=== PATIENT | female | born 1980 | race Caucasian/White ===

== ENCOUNTER 2017-05-27 16:46 | Emergency (ER) | payer OTHER ==
[~2017-05-27] VITALS: Ht 167.6 cm; Wt 49.9 kg
[~2017-05-27 16:46] MED LIST: AMOXICILLIN 50500 MG; BACTRIM DS TAB1 EACH PO; BENADRYL25 MG PO; DUEXIS 800-26.1 EACH; FLEXERIL PO; HYDROCODONE-AP1 EAC6 PO; IBUPROFEN 800800 M1 PO; MACROBID 100 M100 M2 PO; MUCINEX TA600 MG/TA2 PO; NORCO 5-325 TA1 EACH PO; PREDNISONE 10 M10 MG PO; PREDNISONE 20 M20 MG PO; PRILOSEC 20 MG20 MG PO; PROVERA10 MG PO; SUDAFED 12-HOU120 MG PO; TESSALON PERLE100 MG PO; TRAMADOL 50 MG50 MG PO; VENTOLIN HFA 1818 GM INH; ZOFRAN ODT4 MG PO
[2017-05-27] MEDS ORDERED: IBUPROFEN 800800 M1 PO (17:00)
[2017-05-27] MEDS ORDERED: TORADOL 10 MG T10 MG PO (17:22)
[2017-05-27 18:12] VITALS: BP 131/72
== END 2017-05-27 18:12 | disposition home or self-care (01) ==
LOC: M.ERS 16:46
DX: M62.838 Other muscle spasm (principal); F17.210 Nicotine dependence, cigarettes, uncomplicated; Z90.710 Acquired absence of both cervix and uterus; Z98.890 Other specified postprocedural states; Z88.8 Allergy status to other drugs, medicaments and biological substances

== ENCOUNTER 2017-06-27 19:17 | Emergency (ER) | payer OTHER ==
[~2017-06-27] VITALS: Ht 167.6 cm; Wt 51.3 kg
[~2017-06-27 19:17] MED LIST changes: +TORADOL 10 MG T10 MG PO
[2017-06-27] MEDS ORDERED: MEDROLDOSEPACK PO (20:04)
[2017-06-27] MEDS ORDERED: KEFLEX500 M1 PO (20:04)
[2017-06-27] MEDS ORDERED: HYDROCODONE-AP1 EAC6 PO (20:04)
[2017-06-27 20:23] VITALS: BP 119/59
== END 2017-06-27 20:25 | disposition home or self-care (01) ==
LOC: M.ERS 19:17
DX: R68.84 Jaw pain (principal); F17.210 Nicotine dependence, cigarettes, uncomplicated; Z90.89 Acquired absence of other organs; Z86.2 Personal history of diseases of the blood and blood-forming organs and certain disorders involving the immune mechanism; Z90.710 Acquired absence of both cervix and uterus; Z88.6 Allergy status to analgesic agent

== ENCOUNTER 2017-10-16 18:55 | Emergency (ER) | payer OTHER ==
[~2017-10-16] VITALS: Ht 167.6 cm; Wt 49.9 kg
[~2017-10-16 18:55] MED LIST changes: +KEFLEX500 M1 PO; +MEDROLDOSEPACK PO
[2017-10-16 19:00] VITALS: BP 115/63
[2017-10-16] MEDS ORDERED: IMITREX100 MG (19:04)
[2017-10-16] MEDS ORDERED: HYDROCODONE-AP1 EAC6 PO (19:26)
== END 2017-10-16 19:42 | disposition home or self-care (01) ==
LOC: M.ERS 18:55
DX: M26.621 Arthralgia of right temporomandibular joint (principal); F17.210 Nicotine dependence, cigarettes, uncomplicated; Z90.89 Acquired absence of other organs; Z86.2 Personal history of diseases of the blood and blood-forming organs and certain disorders involving the immune mechanism; Z90.710 Acquired absence of both cervix and uterus; Z88.6 Allergy status to analgesic agent

== ENCOUNTER 2018-06-24 17:10 | Emergency (ER) | payer OTHER ==
[~2018-06-24] VITALS: Ht 167.6 cm; Wt 54.4 kg
[~2018-06-24 17:10] MED LIST changes: +IMITREX100 MG
[2018-06-24] MEDS ORDERED: NEURONTIN 300300 M1 PO (17:31)
[2018-06-24] MEDS ORDERED: LEXAPRO20 MG (17:31)
[2018-06-24] MEDS ORDERED: AZO1 EACH (17:32)
[2018-06-24] MEDS ORDERED: IMITREX 25 MG T25 M1 (17:33)
[2018-06-24] MEDS ORDERED: PROTONIX 20 MG20 M1 PO (17:33)
[2018-06-24 18:47] VITALS: BP 109/79
== END 2018-06-24 18:47 | disposition home or self-care (01) ==
LOC: M.ERS 17:10
DX: M25.511 Pain in right shoulder (principal); M54.9 Dorsalgia, unspecified; F17.210 Nicotine dependence, cigarettes, uncomplicated; Z88.6 Allergy status to analgesic agent; Z86.2 Personal history of diseases of the blood and blood-forming organs and certain disorders involving the immune mechanism; Z90.710 Acquired absence of both cervix and uterus; Z98.890 Other specified postprocedural states

== ENCOUNTER 2018-08-12 13:57 | Emergency (ER) | payer OTHER ==
[~2018-08-12] VITALS: Ht 167.6 cm; Wt 61.2 kg
[~2018-08-12 13:57] MED LIST changes: +AZO1 EACH; +IMITREX 25 MG T25 M1; +LEXAPRO20 MG; +NEURONTIN 300300 M1 PO; +PROTONIX 20 MG20 M1 PO
[2018-08-12] MEDS ORDERED: BUSPIRONE HCL10 MG PO (14:18)
[2018-08-12 14:21] LABS: URINE BILIRUBIN NEGATIVE (Negative); URINE BLOOD 2+ (Negative); URINE CLARITY SL CLOUDY; URINE COLOR YELLOW; URINE GLUCOSE-RANDOM NEGATIVE (Negative); URINE KETONES NEGATIVE (Negative); URINE NITRITE-REFLEX NEGATIVE (Negative); URINE PROTEIN 1+ (Negative); URINE SPECIFIC GRAVITY 1.025 (1.005-1.030); URINE UROBILINOGEN 0.2 E.U./dl (0.2-1.0)
[2018-08-12 14:23] LABS: URINE LEUKOCYTES-REFLEX 3+ (Negative)
[2018-08-12 14:33] LABS: BACTERIA-REFLEX >30 Many /HPF (None Seen); SQUAMOUS >10 Many /LPF (0-3); URINE RBC 3-10 Few /HPF (0-2); URINE WBC-REFLEX >25 Many /HPF (0-5)
[2018-08-12 14:34] LABS: CASTS None Seen /LPF (None Seen); CRYSTALS None Seen /LPF (None Seen); MUCUS None Seen strn/LPF (None Seen)
[2018-08-12] MEDS ORDERED: BACTRIM DS TAB1 EACH PO (14:44)
[2018-08-12] MEDS ORDERED: PHENAZOPYRIDIN200 M2 PO (14:44)
[2018-08-12 15:01] VITALS: BP 120/70
== END 2018-08-12 15:01 | disposition home or self-care (01) ==
LOC: M.ERS 13:57
PROVIDERS: Physician Assistant
DX: N39.0 Urinary tract infection, site not specified (principal); F17.210 Nicotine dependence, cigarettes, uncomplicated; Z90.710 Acquired absence of both cervix and uterus; Z98.890 Other specified postprocedural states; Z86.2 Personal history of diseases of the blood and blood-forming organs and certain disorders involving the immune mechanism; Z88.6 Allergy status to analgesic agent

== ENCOUNTER 2018-08-23 21:51 | Emergency (ER) | payer OTHER ==
[~2018-08-23] VITALS: Ht 167.6 cm; Wt 61.2 kg
[~2018-08-23 21:51] MED LIST changes: +BUSPIRONE HCL10 MG PO; +PHENAZOPYRIDIN200 M2 PO
[2018-08-23] MEDS ORDERED: BUSPIRONE HCL10 MG PO (22:03)
[2018-08-23] MEDS ORDERED: NORCO 5-325 TA1 EACH PO (22:21)
[2018-08-23 22:38] VITALS: BP 112/76
== END 2018-08-23 22:38 | disposition home or self-care (01) ==
LOC: M.ERS 21:51
DX: S93.401A Sprain of unspecified ligament of right ankle, initial encounter (principal); Z90.710 Acquired absence of both cervix and uterus; F17.210 Nicotine dependence, cigarettes, uncomplicated; Z88.6 Allergy status to analgesic agent; W10.9XXA Fall (on) (from) unspecified stairs and steps, initial encounter; Y93.89 Activity, other specified; Y92.89 Other specified places as the place of occurrence of the external cause; Y99.8 Other external cause status

== ENCOUNTER 2018-09-16 20:50 | Emergency (ER) | payer OTHER ==
[~2018-09-16] VITALS: Ht 167.6 cm; Wt 62.6 kg
[~2018-09-16 20:50] MED LIST changes: +NORCO 5-325 TA1 EAC1 PO; +PROMETHAZINE HC25 M1 PO
[2018-09-16] MEDS ORDERED: MOBIC7.5 MG PO (21:00)
[2018-09-16 21:13] LABS: URINE BILIRUBIN NEGATIVE (Negative); URINE BLOOD NEGATIVE (Negative); URINE CLARITY CLEAR; URINE COLOR YELLOW; URINE GLUCOSE-RANDOM NEGATIVE (Negative); URINE KETONES TRACE (Negative); URINE LEUKOCYTES-REFLEX NEGATIVE (Negative); URINE NITRITE-REFLEX NEGATIVE (Negative); URINE PROTEIN 1+ (Negative); URINE SPECIFIC GRAVITY >= 1.030 (1.005-1.030); URINE UROBILINOGEN 0.2 E.U./dl (0.2-1.0)
[2018-09-16 21:27] LABS: ABSOLUTE BASOPHILS 0.1 thou/uL (0.0-0.2); ABSOLUTE EOSINOPHILS 0.4 thou/uL (0.0-0.7); ABSOLUTE LYMPHOCYTES 2.8 thou/uL (0.8-5.3); ABSOLUTE MONOCYTES 0.9 thou/uL (0.0-1.2); ABSOLUTE NEUTROPHILS 4.9 thou/uL (1.6-8.1); BASOPHILS 0.8 %; EOSINOPHILS 4.5 %; HEMATOCRIT 36.2 % (37.0-47.0); HEMOGLOBIN 12.2 gm/dL (12.0-15.0); LYMPHOCYTES 30.8 %; MCH 30.2 pg (26.0-34.0); MCHC 33.7 g/dL (28.0-37.0); MCV 89.4 fL (80.0-100.0); MONOCYTES 9.9 %; MPV 8.9 fl. (7.2-11.1); NUCLEATED RBCS 0 /100WBC; PLATELET COUNT* 189 thou/uL (150-400); RBC 4.05 mil/uL (4.20-5.00); RDW-CV 14.8 % (10.5-14.5); WBC 9.1 thou/uL (4.0-11.0)
[2018-09-16 21:43] LABS: ALBUMIN 3.6 g/dL (3.4-5.0); CALCIUM 8.8 mg/dL (8.5-10.1); CREATININE 0.8 mg/dL (0.6-1.3); POTASSIUM 4.8 mmol/L (3.5-5.1); TOTAL BILIRUBIN 0.1 mg/dL (<0.1-1.0); TOTAL PROTEIN 6.5 g/dL (6.4-8.2)
[2018-09-16] MEDS ORDERED: NORCO 5-325 TA1 EACH PO (22:37)
[2018-09-16 23:01] VITALS: BP 138/77
== END 2018-09-16 23:02 | disposition home or self-care (01) ==
LOC: M.ERS 20:50
PROVIDERS: Physician Assistant
DX: N83.202 Unspecified ovarian cyst, left side (principal); F17.210 Nicotine dependence, cigarettes, uncomplicated; Z88.6 Allergy status to analgesic agent; Z90.710 Acquired absence of both cervix and uterus; Z86.2 Personal history of diseases of the blood and blood-forming organs and certain disorders involving the immune mechanism

== ENCOUNTER 2019-01-28 19:55 | Emergency (ER) | payer OTHER ==
[~2019-01-28] VITALS: Ht 167.6 cm; Wt 63.5 kg
[~2019-01-28 19:55] MED LIST changes: +MOBIC7.5 MG PO
[2019-01-28] MEDS ORDERED: AMOXICILLIN 50500 MG (20:04)
[2019-01-28 20:34] LABS: ABSOLUTE BASOPHILS 0.1 thou/uL (0.0-0.2); ABSOLUTE EOSINOPHILS 0.2 thou/uL (0.0-0.7); ABSOLUTE LYMPHOCYTES 2.8 thou/uL (0.8-5.3); ABSOLUTE MONOCYTES 0.7 thou/uL (0.0-1.2); ABSOLUTE NEUTROPHILS 6.3 thou/uL (1.6-8.1); BASOPHILS 1.2 %; EOSINOPHILS 2.2 %; HEMATOCRIT 39.3 % (37.0-47.0); HEMOGLOBIN 13.4 gm/dL (12.0-15.0); LYMPHOCYTES 27.9 %; MCH 30.4 pg (26.0-34.0); MCHC 34.2 g/dL (28.0-37.0); MONOCYTES 7.3 %; MPV 8.6 fl. (7.2-11.1); NUCLEATED RBCS 0 /100WBC; PLATELET COUNT* 267 thou/uL (150-400); POLYS 61.4 %; RBC 4.41 mil/uL (4.20-5.00); RDW-CV 13.8 % (10.5-14.5); WBC 10.2 thou/uL (4.0-11.0)
[2019-01-28 20:41] LABS: CALCIUM 8.8 mg/dL (8.5-10.1); CREATININE 0.9 mg/dL (0.6-1.3); POTASSIUM 3.1 mmol/L (3.5-5.1)
[2019-01-28 20:46] LABS: ALBUMIN 3.6 g/dL (3.4-5.0); TOTAL BILIRUBIN 0.2 mg/dL (<0.1-1.0); TOTAL PROTEIN 7.3 g/dL (6.4-8.2)
[2019-01-28] MEDS ORDERED: TESSALON PERLE100 MG PO (21:11)
[2019-01-28] MEDS ORDERED: ACETAMINOPHEN-1 EAC1 PO (21:11)
[2019-01-28] MEDS ORDERED: PROMETHAZINE V120 ML PO (21:11)
[2019-01-28] MEDS ORDERED: PROAIR HFA8.5 GM INH (21:11)
[2019-01-28 21:31] VITALS: BP 125/79
--- NOTE | 2019-01-29 15:01 | EKG ---
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
== END 2019-01-28 21:35 | disposition home or self-care (01) ==
LOC: M.ERS 19:55
PROVIDERS: Physician Assistant
DX: J20.9 Acute bronchitis, unspecified (principal); E87.6 Hypokalemia; F17.210 Nicotine dependence, cigarettes, uncomplicated; Z90.89 Acquired absence of other organs; Z86.2 Personal history of diseases of the blood and blood-forming organs and certain disorders involving the immune mechanism; Z90.710 Acquired absence of both cervix and uterus; Z88.6 Allergy status to analgesic agent

== ENCOUNTER 2019-02-10 11:18 | Emergency (ER) | payer OTHER ==
[~2019-02-10] VITALS: Ht 167.6 cm; Wt 63.5 kg
[~2019-02-10 11:18] MED LIST changes: +ACETAMINOPHEN-1 EAC1 PO; +PROAIR HFA8.5 GM INH; +PROMETHAZINE V120 ML PO
[2019-02-10 11:54] LABS: URINE BILIRUBIN NEGATIVE (Negative); URINE BLOOD TRACE (Negative); URINE CLARITY SL CLOUDY; URINE COLOR STRAW; URINE GLUCOSE-RANDOM NEGATIVE (Negative); URINE KETONES NEGATIVE (Negative); URINE LEUKOCYTES-REFLEX NEGATIVE (Negative); URINE NITRITE-REFLEX NEGATIVE (Negative); URINE PROTEIN NEGATIVE (Negative); URINE UROBILINOGEN 0.2 E.U./dl (0.2-1.0)
[2019-02-10 12:01] LABS: SQUAMOUS >10 Many /LPF (0-3); URINE RBC 0-2 Rare /HPF (0-2); URINE WBC-REFLEX 0-5 Rare /HPF (0-5)
[2019-02-10 12:02] LABS: BACTERIA-REFLEX >30 Many /HPF (None Seen); CASTS None Seen /LPF (None Seen); CRYSTALS None Seen /LPF (None Seen); MUCUS 0-3 Light strn/LPF (None Seen)
[2019-02-10 12:03] LABS: HEMATOCRIT 37.9 % (37.0-47.0); HEMOGLOBIN 12.8 gm/dL (12.0-15.0); MCHC 33.7 g/dL (28.0-37.0); MCV 88.9 fL (80.0-100.0); MPV 8.6 fl. (7.2-11.1); NUCLEATED RBCS 0 /100WBC; PLATELET COUNT* 253 thou/uL (150-400); RBC 4.26 mil/uL (4.20-5.00); RDW-CV 13.7 % (10.5-14.5); WBC 21.2 thou/uL (4.0-11.0)
[2019-02-10 12:11] LABS: CALCIUM 8.2 mg/dL (8.5-10.1); CREATININE 0.8 mg/dL (0.6-1.3); POTASSIUM 3.5 mmol/L (3.5-5.1)
[2019-02-10 12:20] LABS: ALBUMIN 3.1 g/dL (3.4-5.0); TOTAL BILIRUBIN 0.2 mg/dL (<0.1-1.0); TOTAL PROTEIN 6.6 g/dL (6.4-8.2)
[2019-02-10 12:30] LABS: ABSOLUTE BASOPHILS 0.2 thou/uL (0.0-0.2); ABSOLUTE EOSINOPHILS 1.1 thou/uL (0.0-0.7); ABSOLUTE LYMPHOCYTES 3.2 thou/uL (0.8-5.3); ABSOLUTE MONOCYTES 1.3 thou/uL (0.0-1.2); ABSOLUTE NEUTROPHILS 15.5 thou/uL (1.6-8.1)
[2019-02-10 12:31] LABS: PLATELET ESTIMATE ADEQUATE
[2019-02-10] MEDS ORDERED: NORCO 5-325 TA1 EAC1 PO (14:18)
[2019-02-10] MEDS ORDERED: ZPAK PO (14:18)
[2019-02-10 14:31] VITALS: BP 114/73
== END 2019-02-10 14:31 | disposition home or self-care (01) ==
LOC: M.ERS 11:18
PROVIDERS: Emergency Medicine Emergency Medical Services
DX: R10.84 Generalized abdominal pain (principal); F17.210 Nicotine dependence, cigarettes, uncomplicated; Z90.710 Acquired absence of both cervix and uterus; Z88.6 Allergy status to analgesic agent

== ENCOUNTER 2019-04-26 17:21 | Emergency (ER) | payer OTHER ==
[~2019-04-26] VITALS: Ht 167.6 cm; Wt 68.0 kg
[~2019-04-26 17:21] MED LIST changes: +ZPAK PO
[2019-04-26] MEDS ORDERED: PREDNISONE 20 M20 M1 PO (18:23)
[2019-04-26] MEDS ORDERED: FLEXERIL PO (18:23)
[2019-04-26] MEDS ORDERED: NORCO 5-325 TA1 EAC1 PO (18:23)
[2019-04-26 19:08] VITALS: BP 121/70
== END 2019-04-26 19:08 | disposition home or self-care (01) ==
LOC: M.ERS 17:21
DX: M54.32 Sciatica, left side (principal); F17.210 Nicotine dependence, cigarettes, uncomplicated; Z90.89 Acquired absence of other organs; Z90.710 Acquired absence of both cervix and uterus; Z86.2 Personal history of diseases of the blood and blood-forming organs and certain disorders involving the immune mechanism; Z88.6 Allergy status to analgesic agent

== ENCOUNTER 2019-06-15 19:57 | Emergency (ER) | payer OTHER ==
[~2019-06-15] VITALS: Ht 167.6 cm; Wt 70.3 kg
[~2019-06-15 19:57] MED LIST changes: +PREDNISONE 20 M20 M1 PO
[2019-06-15] MEDS ORDERED: CYMBALTA30 MG PO (20:13)
[2019-06-15 21:31] LABS: INFLUENZA A ANTIGEN Negative (Negative); INFLUENZA B ANTIGEN Negative (Negative)
[2019-06-15 22:24] LABS: ABSOLUTE BASOPHILS 0.1 thou/uL (0.0-0.2); ABSOLUTE EOSINOPHILS 0.3 thou/uL (0.0-0.7); ABSOLUTE MONOCYTES 0.8 thou/uL (0.0-1.2); ABSOLUTE NEUTROPHILS 5.4 thou/uL (1.6-8.1); EOSINOPHILS 3.4 %; HEMATOCRIT 37.2 % (37.0-47.0); HEMOGLOBIN 12.7 gm/dL (12.0-15.0); LYMPHOCYTES 31.2 %; MCH 29.7 pg (26.0-34.0); MCHC 34.2 g/dL (28.0-37.0); MCV 86.8 fL (80.0-100.0); MONOCYTES 7.9 %; MPV 8.4 fl. (7.2-11.1); NUCLEATED RBCS 0 /100WBC; PLATELET COUNT* 273 thou/uL (150-400); POLYS 56.5 %; RBC 4.29 mil/uL (4.20-5.00); RDW-CV 15.1 % (10.5-14.5); WBC 9.6 thou/uL (4.0-11.0)
[2019-06-15 22:30] LABS: CALCIUM 8.3 mg/dL (8.5-10.1); CREATININE 0.8 mg/dL (0.6-1.3); POTASSIUM 3.8 mmol/L (3.5-5.1)
[2019-06-15 22:40] LABS: ALBUMIN 3.6 g/dL (3.4-5.0); TOTAL BILIRUBIN 0.1 mg/dL (<0.1-1.0); TOTAL PROTEIN 6.8 g/dL (6.4-8.2)
[2019-06-15 22:49] LABS: PROTIME 9.8 Seconds (9.20-11.50)
[2019-06-15] MEDS ORDERED: PREDNISONE50 MG PO (23:07)
[2019-06-15] MEDS ORDERED: XOPENEX0.63 MG/3 INH (23:07)
[2019-06-15 23:23] LABS: ESR (SEDRATE) 5 mm/hr (0-20)
[2019-06-15] MEDS ORDERED: FLEXERIL PO (23:28)
[2019-06-15 23:30] VITALS: BP 125/74
== END 2019-06-15 23:31 | disposition home or self-care (01) ==
LOC: M.ERS 19:57
PROVIDERS: Emergency Medicine; Physician Assistant
DX: J40 Bronchitis, not specified as acute or chronic (principal); M25.511 Pain in right shoulder; J44.9 Chronic obstructive pulmonary disease, unspecified; F17.210 Nicotine dependence, cigarettes, uncomplicated; Z88.6 Allergy status to analgesic agent; Z90.710 Acquired absence of both cervix and uterus; Z90.89 Acquired absence of other organs; Z86.2 Personal history of diseases of the blood and blood-forming organs and certain disorders involving the immune mechanism

== ENCOUNTER 2019-08-03 18:53 | Emergency (ER) | payer OTHER ==
[~2019-08-03] VITALS: Ht 167.6 cm; Wt 72.6 kg
[~2019-08-03 18:53] MED LIST changes: +CYMBALTA30 MG PO; +PREDNISONE50 MG PO; +XOPENEX0.63 MG/3 INH
[2019-08-03] MEDS ORDERED: NEURONTIN 300M300 M2 PO (19:07)
[2019-08-03] MEDS ORDERED: BUSPAR30 MG PO (19:08)
[2019-08-03] MEDS ORDERED: PRILOSEC OTC20 MG PO (19:08)
[2019-08-03 19:40] VITALS: BP 112/72
== END 2019-08-03 19:40 | disposition home or self-care (01) ==
LOC: M.ERS 18:53
DX: M72.2 Plantar fascial fibromatosis (principal); F17.210 Nicotine dependence, cigarettes, uncomplicated; F12.90 Cannabis use, unspecified, uncomplicated; J44.9 Chronic obstructive pulmonary disease, unspecified; Z88.6 Allergy status to analgesic agent; Z79.899 Other long term (current) drug therapy; Z90.710 Acquired absence of both cervix and uterus

== ENCOUNTER 2019-09-29 21:27 | Emergency (ER) | payer OTHER ==
[~2019-09-29] VITALS: Ht 167.6 cm; Wt 72.6 kg
[~2019-09-29 21:27] MED LIST changes: +BUSPAR30 MG PO; +NEURONTIN 300M300 M2 PO; +PRILOSEC OTC20 MG PO
[2019-09-29] MEDS ORDERED: CELEXA 10 MG TA10 M1 PO (21:41)
[2019-09-29] MEDS ORDERED: REQUIP 1 MG TABL1 M1 PO (21:42)
[2019-09-29] MEDS ORDERED: FLEXERIL PO ×2 (22:24→22:28)
[2019-09-29] MEDS ORDERED: HYDROCODON-ACE1 EAC8 PO (22:24)
[2019-09-29 22:36] VITALS: BP 115/70
== END 2019-09-29 22:37 | disposition home or self-care (01) ==
LOC: M.ERS 21:27
DX: M54.42 Lumbago with sciatica, left side (principal); J44.9 Chronic obstructive pulmonary disease, unspecified; F17.210 Nicotine dependence, cigarettes, uncomplicated; Z88.6 Allergy status to analgesic agent; Z90.89 Acquired absence of other organs; Z90.710 Acquired absence of both cervix and uterus

== ENCOUNTER 2019-11-11 20:28 | Emergency (ER) | payer OTHER ==
[~2019-11-11] VITALS: Ht 167.6 cm; Wt 69.8 kg
[~2019-11-11 20:28] MED LIST changes: +CELEXA 10 MG TA10 M1 PO; +HYDROCODON-ACE1 EAC8 PO; +REQUIP 1 MG TABL1 M1 PO
[2019-11-11] MEDS ORDERED: LIDODERM1 EACH TRANSDERM (20:59)
[2019-11-11] MEDS ORDERED: MEDROLDOSEPACK PO (20:59)
[2019-11-11] MEDS ORDERED: MOBIC15 MG PO (20:59)
[2019-11-11 21:29] VITALS: BP 112/77
== END 2019-11-11 21:32 | disposition home or self-care (01) ==
LOC: M.ERS 20:28
DX: M54.5 Low back pain (principal); M62.830 Muscle spasm of back; J44.9 Chronic obstructive pulmonary disease, unspecified; F17.210 Nicotine dependence, cigarettes, uncomplicated; Z79.899 Other long term (current) drug therapy; Z90.710 Acquired absence of both cervix and uterus; Z90.89 Acquired absence of other organs

== ENCOUNTER 2020-01-31 17:04 | Emergency (ER) | payer OTHER ==
[~2020-01-31] VITALS: Ht 167.6 cm; Wt 72.6 kg
[~2020-01-31 17:04] MED LIST changes: +LIDODERM1 EACH TRANSDERM; +MOBIC15 MG PO
[2020-01-31] MEDS ORDERED: FLEXERIL PO (17:24)
[2020-01-31] MEDS ORDERED: NABUMETONE 500500 M1 PO (17:24)
[2020-01-31 18:08] LABS: ABSOLUTE BASOPHILS 0.1 thou/uL (0.0-0.2); ABSOLUTE EOSINOPHILS 0.2 thou/uL (0.0-0.7); ABSOLUTE LYMPHOCYTES 3.1 thou/uL (0.8-5.3); ABSOLUTE MONOCYTES 0.7 thou/uL (0.0-1.2); ABSOLUTE NEUTROPHILS 7.2 thou/uL (1.6-8.1); BASOPHILS 1.1 %; EOSINOPHILS 2.1 %; HEMOGLOBIN 13.8 gm/dL (12.0-15.0); MCH 30.1 pg (26.0-34.0); MCHC 34.5 g/dL (28.0-37.0); MCV 87.4 fL (80.0-100.0); MONOCYTES 6.2 %; MPV 8.7 fl. (7.2-11.1); NUCLEATED RBCS 0 /100WBC; PLATELET COUNT* 298 thou/uL (150-400); POLYS 63.6 %; RBC 4.58 mil/uL (4.20-5.00); RDW-CV 14.1 % (10.5-14.5); WBC 11.3 thou/uL (4.0-11.0)
[2020-01-31 18:19] LABS: CALCIUM 8.5 mg/dL (8.5-10.1); CREATININE 0.9 mg/dL (0.6-1.3); POTASSIUM 3.6 mmol/L (3.5-5.1)
[2020-01-31 18:23] LABS: ALBUMIN 4.1 g/dL (3.4-5.0); TOTAL BILIRUBIN 0.2 mg/dL (<0.1-1.0)
[2020-01-31 19:00] VITALS: BP 137/79
--- NOTE | 2020-02-01 13:10 | EKG ---
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
== END 2020-01-31 19:00 | disposition home or self-care (01) ==
LOC: M.ERS 17:04
PROVIDERS: Family Medicine
DX: R42 Dizziness and giddiness (principal); Z20.828 Contact with and (suspected) exposure to other viral communicable diseases; J44.9 Chronic obstructive pulmonary disease, unspecified; F17.210 Nicotine dependence, cigarettes, uncomplicated; Z88.6 Allergy status to analgesic agent; Z90.710 Acquired absence of both cervix and uterus; Z90.89 Acquired absence of other organs

== ENCOUNTER 2020-02-22 19:43 | Emergency (ER) | payer OTHER ==
[~2020-02-22] VITALS: Ht 167.6 cm; Wt 72.6 kg
[~2020-02-22 19:43] MED LIST changes: +NABUMETONE 500500 M1 PO
[2020-02-22] MEDS ORDERED: PRILOSEC10 MG PO (19:52)
[2020-02-22 20:24] LABS: INFLUENZA A ANTIGEN Negative (Negative); INFLUENZA B ANTIGEN Negative (Negative)
[2020-02-22] MEDS ORDERED: PROAIR HFA8.5 GM INH ×2 (21:13→21:14)
[2020-02-22 21:34] VITALS: BP 122/64
--- NOTE | 2020-02-24 13:40 | EKG ---
[place] [address] ELECTROCARDIOGRAM REPORT Name: CALOS CAMACHO Room: [facility]#: [id number] Admission: 02/22/20 Attend Phys: Discharge: 02/22/20 Date of : 82 Date of Service: 02/22/202054 Report #: [id number] THIS REPORT FOR: //name// 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[place] : 1980 Requested By: Jennifer Negron Order Number: [id number] MD: Will Alva Measurements Intervals [place] Rate: 72 P: 62 VA: 161 QRS: 54 QRSD: 106 T: 49 QT: 365 QTc: 400 Interpretive Statements Sinus rhythm Borderline T abnormalities, lateral leads Compared to ECG 01/31/2020 17:58:20 T-wave abnormality now present Electronically Signed On 02-24-2020 13:40:41 CDT by Will Alva [email or web address] <ELECTRONICALLY SIGNED> By: Will Alva MD, [facility] 02/24/20 1340 54 54 Will Alva MD, [facility] /EPI
== END 2020-02-22 21:34 | disposition home or self-care (01) ==
LOC: M.ERS 19:43
PROVIDERS: Emergency Medicine
DX: R06.00 Dyspnea, unspecified (principal); Z20.828 Contact with and (suspected) exposure to other viral communicable diseases; J44.9 Chronic obstructive pulmonary disease, unspecified; F17.210 Nicotine dependence, cigarettes, uncomplicated; Z88.6 Allergy status to analgesic agent; Z90.710 Acquired absence of both cervix and uterus; Z90.89 Acquired absence of other organs; Z86.2 Personal history of diseases of the blood and blood-forming organs and certain disorders involving the immune mechanism

== ENCOUNTER 2020-05-31 10:02 | Emergency (ER) | payer OTHER ==
[~2020-05-31] VITALS: Ht 167.6 cm; Wt 77.1 kg
[~2020-05-31 10:02] MED LIST changes: +PRILOSEC10 MG PO
[2020-05-31] MEDS ORDERED: HYDROCODON-ACE1 EAC7 PO (12:11)
[2020-05-31 12:36] VITALS: BP 141/79
== END 2020-05-31 12:36 | disposition home or self-care (01) ==
LOC: M.ERS 10:02
DX: S82.831A Other fracture of upper and lower end of right fibula, initial encounter for closed fracture (principal); M47.816 Spondylosis without myelopathy or radiculopathy, lumbar region; J44.9 Chronic obstructive pulmonary disease, unspecified; F17.210 Nicotine dependence, cigarettes, uncomplicated; Z79.899 Other long term (current) drug therapy; Z88.6 Allergy status to analgesic agent; Z86.73 Personal history of transient ischemic attack (TIA), and cerebral infarction without residual deficits; Z90.710 Acquired absence of both cervix and uterus; Z90.89 Acquired absence of other organs; X50.1XXA Overexertion from prolonged static or awkward postures, initial encounter; Y93.89 Activity, other specified; Y92.89 Other specified places as the place of occurrence of the external cause; Y99.9 Unspecified external cause status